=== PATIENT | male | born 1975 | race Caucasian/White ===

== ENCOUNTER 2018-02-08 05:35 | Emergency (ER) | payer MEDICAID, SELFPAY ==
[2018-02-08] MEDS: cefTRIAXone SOD 2 GM VIAL (J0696) IM ×2 (06:15)
[2018-02-08] MEDS: ACETAMINOPHEN 325 MG TAB PO ×2 (06:15)
[2018-02-08] MEDS ORDERED: LIDOCAINE 1% MDV 20ML VIAL As Ordered ×2 (06:25)
== END 2018-02-08 07:01 | disposition left against medical advice (07) ==
LOC: M ED 05:35
DX: K02.9 Dental caries, unspecified (principal); L03.211 Cellulitis of face
CPT/HCPCS: J0696